=== PATIENT | male | born 1955 | race Caucasian/White ===

== ENCOUNTER 2022-09-05 14:39 | Outpatient (CLI) | payer BC, MEDICAID, SELFPAY ==
--- NOTE | ~2022-09-05 | CT_ITS ---
EXAMINATION: CT lung screening DATE: 09/05/2022 15:21 INDICATION: TOBACCO USE TECHNIQUE: Computed tomography (CT) of the chest was performed without intravenous contrast. Addition al 3D reconstructions utilizing coronal maximum intensity projection (MIP) were performed. Automated exposure control and iterative reconstruction technique were employed. The dose-length product was 29 8.63 mGy-cm. COMPARISON: None FINDINGS: Mild discoid atelectasis at the lingula. Additional mild streaky atelectasis at the lateral basilar l eft lower lobe. Also in the lateral basilar left lower lobe or 2 closely opposed nodules measuring 4 mm and 2 mm . No other suspicious pulmonary nodules, pneumonia, pulmonary edema or pleural effusion. Heart size is normal. No pericardial effusion. Thoracic aorta is normal in caliber. Thoracic aorta is normal in caliber. No pathologically enlarged thoracic lymphadenopathy. Mild bilateral gynecomastia. Visualized upper abdomen is unremarkable. Moderate thoracic spondylosis with chronic appearing mild anterior wedging at T2, T6 and T7. IMPRESSION: 1. Lung-RADS category 2: Benign appearance or behavior. Continue annual screening with noncontrast lo w-dose chest CT in 12 months. Reviewed, dictated and finalized at location A. LAMINATOR IMPRESSION: 1. Lung-RADS category 2: Benign appearance or behavior. Continue annual screeni ng with noncontrast low-dose chest CT in 12 months.
== END 2022-09-05 14:40 | disposition home or self-care (01) ==
LOC: ANHIMG 14:48
PROVIDERS: PCP Emergency Medicine; Visit Provider Emergency Medicine
DX: Z12.2 Encounter for screening for malignant neoplasm of respiratory organs (principal); Z87.891 Personal history of nicotine dependence
CPT/HCPCS: 71271